=== PATIENT | male | born 1965 | race African-American/Black ===

== ENCOUNTER 2023-09-12 08:22 | Emergency (ER) | payer MEDICAID ==
[~2023-09-12] VITALS: Ht 180.3 cm; Wt 83.0 kg
[2023-09-12 08:25] VITALS: O2SAT 100
[2023-09-12] MEDS ORDERED: SODIUM CHLORIDE 0.9% 500 ML IV ONE (09:00)
[2023-09-12 09:34] VITALS: BP 172/102; PULSE 86; RESP 16; TEMP 98.8
== END 2023-09-12 10:49 | disposition left against medical advice (07) ==
LOC: ER 08:22 → CANBEDREQ 10:45 → ER 10:49
DX: R55 Syncope and collapse (principal); I10 Essential (primary) hypertension
CPT/HCPCS: 99283; 71045; 93005; J7040

== ENCOUNTER 2024-01-30 11:00 | Emergency (ER) | payer MEDICAID ==
[~2024-01-30] VITALS: Ht 170.2 cm; Wt 83.0 kg
[~2024-01-30 11:00] MED LIST: DILT180C66 MT
[2024-01-30 11:13] VITALS: BP 145/75; PULSE 98; RESP 16; TEMP 98.6; O2SAT 100
[2024-01-30 13:03] LABS: BASOPHILS % 1.1 % (0.0-2.0); EOSINOPHILS % 3.9 % (0.0-5.0); HEMATOCRIT. 29.6 % (42.0-52.0); HEMOGLOBIN. 10.1 g/dL (14.0-18.0); LYMPHOCYTES % 27.6 % (20.0-50.0); MEAN CORPUSCULAR HEMOGLOBIN 29.6 pg (28.0-32.0); MEAN CORPUSCULAR HGB CONC 34.1 g/dL (31.0-37.0); MEAN CORPUSCULAR VOLUME 86.9 fL (80.0-94.0); MEAN PLATELET VOLUME 6.3 fl (7.4-10.4); MONOCYTES % 13.7 % (2.0-8.0); NEUTROPHILS % 53.7 % (40.0-76.0); PLATELET 362 x1000/uL (130-400)
[2024-01-30 13:09] LABS: POTASSIUM 3.8 mEq/L (3.5-5.1)
[2024-01-30 13:19] LABS: CREATININE 1.8 mg/dL (0.6-1.3)
== END 2024-01-30 16:30 | disposition left against medical advice (07) ==
LOC: ER 11:12 → EDBEDREQ 16:31 → EDBEDREQTM 16:31 → CANBEDREQ 16:51
DX: N17.8 Other acute kidney failure (principal); I10 Essential (primary) hypertension; Z98.890 Other specified postprocedural states; Z88.0 Allergy status to penicillin
CPT/HCPCS: 36415; 80048; 85025; 99283